=== PATIENT | female | born 1945 | race Caucasian/White ===

== ENCOUNTER → 2019-10-30 12:08 | Outpatient (CLI) | payer OTHER, SELFPAY ==
--- NOTE | ~2019-10-30 | XR_ITS ---
EXAMINATION: XR chest 2V EXAM DATE: 10/30/2019 12:34 INDICATION: Dyspnea, emphysema. Pulmonary edema. TECHNIQUE: Frontal and lateral projections of the chest obtained and reviewed. Comparison is made to prior examination from 09/19/2019. FINDINGS: There is cardiomegaly and pulmonary vascular congestion. Small to moderate pleural effusio n, small left pleural effusion. There is right basilar atelectasis. Superimposed pneumonia not exclud able. Possible mild CHF exacerbation. There is no pneumothorax suspected. There is aortic arterial sc lerosis. There are bony degenerative changes. Previous exam had congestive changes and possible mild pulmonary edema. The effusions, more focal rig ht basilar airspace disease is new. IMPRESSION: 1. Possible mild CHF exacerbation. 2. Small to moderate right, small left pleural effusions. 3. Right basilar atelectasis. 4. Edema or pneumonia not excludable. Reviewed, dictated and finalized at location A. FACTURING ACCOUNTANT
== END ==
PROVIDERS: PCP Family Medicine Adolescent Medicine; Visit Provider Family Medicine Adolescent Medicine
DX: R06.09 Other forms of dyspnea (principal); J43.9 Emphysema, unspecified; J81.1 Chronic pulmonary edema; J90 Pleural effusion, not elsewhere classified; R91.8 Other nonspecific abnormal finding of lung field
CPT/HCPCS: 71046